=== PATIENT | male | born 1990 | race Caucasian/White ===

== ENCOUNTER 2017-01-27 18:10 | Emergency (ER) | payer MEDICAID ==
[~2017-01-27] VITALS: Ht 172.7 cm; Wt 89.4 kg
[2017-01-27 18:20] VITALS: BP 136/74
--- NOTE | 2017-01-27 19:04 | NUR ---
TO ER BED 7
--- NOTE | 2017-01-27 19:19 | NUR ---
PATIENT PRESENTS TO ED S/P STEPPING ON NAIL WHILE OUTSIDE TAKING OUT THE TRASH TODAY. . PT DENIES N/V/D; SKIN IS PINK/WARM/DRY; AAOX4 WITH EVEN AND STEADY GAIT; LUNGS CLEAR BL; HR EVEN AND REGULAR; PT DENIES ANY FEVER, CP, SOB, OR COUGH AT THIS TIME; PATIENT STATES PAIN OF 8/10 AT THIS TIME; VSS; PATIENT POSITIONED FOR COMFORT; HOB ELEVATED; BEDRAILS UP X2; BED DOWN. ER MD MADE AWARE OF PT STATUS.
--- NOTE | 2017-01-27 19:20 | NUR ---
PATIENT BEING EVALUATED BY DR. LANCASTER.
[2017-01-27 20:14] VITALS: BP 129/76
--- NOTE | 2017-01-27 20:14 | NUR ---
Patient discharged with v/s stable. Written and verbal after care instructions given and explained. Patient alert, oriented and verbalized understanding of instructions. Ambulatory with steady gait. All questions addressed prior to discharge. ID band removed. Patient advised to follow up with PMD. Rx of AUGMENTIN 875MG given. Patient educated on indication of medication including possible reaction and side effects. Opportunity to ask questions provided and answered.
== END 2017-01-27 20:14 | disposition home or self-care (01) ==
LOC: MED 18:10
DX: S91.331A Puncture wound without foreign body, right foot, initial encounter (principal); R03.0 Elevated blood-pressure reading, without diagnosis of hypertension; W22.8XXA Striking against or struck by other objects, initial encounter; Y93.89 Activity, other specified; Y92.89 Other specified places as the place of occurrence of the external cause; Y99.8 Other external cause status
CPT/HCPCS: 73630; 90471; 90715; 99284

== ENCOUNTER 2019-10-02 22:05 | Emergency (ER) | payer MEDICAID ==
[~2019-10-02] VITALS: Ht 172.7 cm; Wt 85.3 kg
[2019-10-02 22:08] VITALS: BP 135/70
[2019-10-02] MEDS ORDERED: LIDOCAINE/EPI 1% 1:100000 20 ML VIAL INJ ONE (22:50)
[2019-10-02] MEDS ORDERED: BACITRACIN OINT 500 UNITS/GM PKT TP ONE (23:45)
[2019-10-02 23:52] VITALS: BP 118/60
== END 2019-10-02 23:52 | disposition home or self-care (01) ==
LOC: MED 22:05
DX: S61.213A Laceration without foreign body of left middle finger without damage to nail, initial encounter (principal); J45.909 Unspecified asthma, uncomplicated; W45.8XXA Other foreign body or object entering through skin, initial encounter; Y93.89 Activity, other specified; Y92.89 Other specified places as the place of occurrence of the external cause; Y99.8 Other external cause status
CPT/HCPCS: 12041; 90471; 90715; 99284; J2001; 12001; 99283

== ENCOUNTER 2019-10-09 16:11 | Emergency (ER) | payer MEDICAID ==
[~2019-10-09] VITALS: Ht 172.7 cm; Wt 86.2 kg
[2019-10-09 16:13] VITALS: BP 148/87
--- NOTE | 2019-10-09 16:18 | NUR ---
PT AMBULATED TO BED 2, STEADY GAIT.
--- NOTE | 2019-10-09 16:24 | NUR ---
29 YO MALE CAME IN TO HAVE SUTURES REMOVED. WOUND IS CLEAN AND DRY. NO BLEEDING OR DISCHARGE.
[2019-10-09 16:35] VITALS: BP 148/87
== END 2019-10-09 16:34 | disposition home or self-care (01) ==
LOC: MED 16:11
DX: S61.211D Laceration without foreign body of left index finger without damage to nail, subsequent encounter (principal); R03.0 Elevated blood-pressure reading, without diagnosis of hypertension; X58.XXXD Exposure to other specified factors, subsequent encounter; Y93.9 Activity, unspecified; Y92.89 Other specified places as the place of occurrence of the external cause; Y99.8 Other external cause status
CPT/HCPCS: 99282

== ENCOUNTER 2019-10-12 14:13 | Emergency (ER) | payer MEDICAID ==
[~2019-10-12] VITALS: Ht 172.7 cm; Wt 85.5 kg
[2019-10-12 14:29] VITALS: BP 127/79
--- NOTE | 2019-10-12 14:31 | NUR ---
WAIT AT LOBBY.
--- NOTE | 2019-10-12 14:49 | NUR ---
PT AMBULATED TO BED 7
--- NOTE | 2019-10-12 15:07 | NUR ---
PT PRESENTS TO THE ER FOR SUTURE REMOVAL TO LEFT INDEX FINGER. THREE SUTURES ON LEFT INDEX FINGER W/O DRAINAGE OR ERYTHEMA. PATIENT STATES PAIN OF 0/10 AT THIS TIME; VSS; PATIENT POSITIONED FOR COMFORT; HOB ELEVATED; BEDRAILS UP X1; BED DOWN. ER MD MADE AWARE OF PT STATUS.
[2019-10-12 15:53] VITALS: BP 125/75
--- NOTE | 2019-10-12 15:55 | NUR ---
Patient discharged with v/s stable. Written and verbal after care instructions given and explained. Patient verbalized understanding. Ambulatory with steady gait. All questions addressed prior to discharge. Advised to follow up with PMD.
== END 2019-10-12 15:55 | disposition home or self-care (01) ==
LOC: MED 14:13
DX: S61.211D Laceration without foreign body of left index finger without damage to nail, subsequent encounter (principal); X58.XXXD Exposure to other specified factors, subsequent encounter
CPT/HCPCS: 99281

== ENCOUNTER 2020-01-05 14:03 | Emergency (ER) | payer MEDICAID ==
[~2020-01-05] VITALS: Ht 180.3 cm; Wt 117.9 kg
[2020-01-05 14:18] VITALS: BP 149/87
--- NOTE | 2020-01-05 14:24 | NUR ---
29 YO MALE CO LEFT UPPER CHEST PAIN SINCE TODAY. RADIATES TO SHOULDER AND BACK. PT DENIES ANY INJURIES BUT IS UNABLE TO LIFT ARM. NO PMH, NO RX
--- NOTE | 2020-01-05 15:37 | NUR ---
Dr. Bingham is evaluating the patient at bedside.
[2020-01-05 16:14] VITALS: BP 149/87
== END 2020-01-05 15:40 | disposition home or self-care (01) ==
LOC: MED 14:03
DX: S43.401A Unspecified sprain of right shoulder joint, initial encounter (principal); F17.210 Nicotine dependence, cigarettes, uncomplicated; F12.90 Cannabis use, unspecified, uncomplicated; X58.XXXA Exposure to other specified factors, initial encounter; Y93.89 Activity, other specified; Y92.89 Other specified places as the place of occurrence of the external cause; Y99.8 Other external cause status
CPT/HCPCS: 93005; 99283